=== PATIENT | female | born 1970 | race Caucasian/White ===

== ENCOUNTER 2023-06-05 11:01 | Observation (INO) ==
[2023-06-05 15:34] LABS: BASOPHILS # (AUTO) 0.1 X10^3/uL (0.0-0.1); BASOPHILS % (AUTO) 0.9 % (0.2-1.0); EOSINOPHILS # (AUTO) 0.3 x10^3/uL (0.0-0.2); EOSINOPHILS % (AUTO) 2.7 % (0.9-2.9); HEMATOCRIT 41.2 % (36.0-47.0); HEMOGLOBIN 14.1 g/dL (12.0-16.0); LYMPHOCYTES # (AUTO) 3.6 X10^3/uL (1.3-2.9); MEAN CORPUSCULAR HEMOGLOBIN 30.7 pg (27.0-34.0); MEAN CORPUSCULAR HGB CONC 34.3 g/dL (33.0-35.0); MEAN CORPUSCULAR VOLUME 89.6 fL (80.0-100.0); MEAN PLATELET VOLUME 8.8 fL (7.4-11.0); MONOCYTES # (AUTO) 0.9 x10^3/uL (0.3-0.8); MONOCYTES % (AUTO) 7.2 % (0.0-13.0); NEUTROPHILS # (AUTO) 6.9 x10^3/uL (2.2-4.8); NEUTROPHILS % (AUTO) 58.2 % (42.0-75.0); PLATELET COUNT 248 X10^3/uL (150.0-450.0); RED BLOOD COUNT 4.59 X10^6/uL (3.5-5.4); RED CELL DISTRIBUTION WIDTH 13.3 % (11.6-16.5); WHITE BLOOD COUNT 11.8 X10^3/uL (3.6-10.0)
[2023-06-05] MEDS ORDERED: ZITHROMAX INJ 500 MG VIAL IV ONE (15:36)
[2023-06-05 15:46] LABS: ALANINE AMINOTRANSFERASE 21 Units/L (12-78); ALBUMIN 3.2 g/dL (3.4-5.0); ALKALINE PHOSPHATASE 98 Units/L (46-116); ASPARTATE AMINO TRANSFERASE 12 Units/L (15-37); BLOOD UREA NITROGEN 21 mg/dL (7-18); CALCIUM 8.8 mg/dL (8.5-10.1); CARBON DIOXIDE 27.2 mmol/L (21-32); CHLORIDE 107 mmol/L (98-107); COR CA(FOR HYPOALB) 9.4 mg/dL (8.5-10.1); GLUCOSE 110 mg/dL (65-99); SODIUM 142 mmol/L (136-145); eGFR NON BLACK RACES > 60 (>60)
[2023-06-05] MEDS: ZITHROMAX INJ 500 MG VIAL 500 MG in NS 250 ML IV 250 ML IV SCH (15:46)
[2023-06-05] MEDS: SOLU-Medrol 125 MG VIAL IVP SCH (15:46)
[2023-06-05] MEDS: INVanz INJ 1 GRAM VIAL 1 G in NS 100 ML IV 100 ML IV SCH (15:47)
[2023-06-05] MEDS: DUONEB 0.5 MG/3 MG (3 mL) NEB SCH (16:18)
[2023-06-05 16:48] LABS: BILIRUBIN,URINE NEGATIVE (NEGATIVE); BLOOD/HEMOGLOBIN,URINE NEGATIVE (NEGATIVE); GLUCOSE, URINE NEGATIVE (NEGATIVE); KETONES,URINE NEGATIVE (NEGATIVE); LEUKOCYTE ESTERASE ,URINE NEGATIVE (NEGATIVE); NITRITES,URINE NEGATIVE (NEGATIVE); PROTEIN,URINE NEGATIVE (NEGATIVE); UROBILINOGEN,URINE NORMAL (NORMAL)
[2023-06-05 16:49] LABS: APPEARANCE,URINE CLEAR (CLEAR); COLOR,URINE YELLOW (YELLOW)
[2023-06-05] MEDS: NICOTINE PATCH TD SCH (17:52)
[2023-06-05 18:05] VITALS: BMI 33.7
[2023-06-05] MEDS: ZOFRAN INJ 4 MG VIAL IVP PRN (18:08)
[2023-06-05] MEDS: DUONEB 0.5 MG/3 MG (3 mL) NEB ONE (18:11)
[2023-06-05] MEDS: PROVENTIL NEB TX 0.083% 2.5MG/ 3ML ONE (18:11)
--- NOTE | 2023-06-05 18:16 | RAD ---
EXAM:CHEST, PA/LAT ADULTHISTORY:bronchitis;COMPARISON:None availableTECHNIQUE:PA and lateral projections, 2 imagesFINDINGS:Cardiac silhouette is normal in size and configuration.Pulmonary vascular sizes are normal.No effusion.No acute focal airspace disease.Thin band of atelectasis or scarring in the left lower lobe.No pneumothorax.No acute osseous abnormalityIMPRESSION:No imaging findings of acute cardiopulmonary disease.THIS IS AN ELECTRONICALLY VERIFIED FINAL REPORT06/05/2023 6:13 PM - Electronically signed by Tony Durham MD
[2023-06-05] MEDS: PULMICORT NEB TX 0.5 MG NEB SCH (20:23)
[2023-06-05] MEDS: CHECK PATCH XX SCH (21:20)
[2023-06-06 04:46] LABS: BASOPHILS # (AUTO) 0.1 X10^3/uL (0.0-0.1); BASOPHILS % (AUTO) 0.4 % (0.2-1.0); EOSINOPHILS % (AUTO) 0.1 % (0.9-2.9); HEMATOCRIT 41.5 % (36.0-47.0); HEMOGLOBIN 14.1 g/dL (12.0-16.0); LYMPHOCYTES # (AUTO) 0.6 X10^3/uL (1.3-2.9); MEAN CORPUSCULAR HEMOGLOBIN 30.4 pg (27.0-34.0); MEAN CORPUSCULAR VOLUME 89.3 fL (80.0-100.0); MEAN PLATELET VOLUME 8.8 fL (7.4-11.0); MONOCYTES # (AUTO) 0.3 x10^3/uL (0.3-0.8); MONOCYTES % (AUTO) 2.5 % (0.0-13.0); NEUTROPHILS # (AUTO) 10.7 x10^3/uL (2.2-4.8); PLATELET COUNT 262 X10^3/uL (150.0-450.0); RED BLOOD COUNT 4.64 X10^6/uL (3.5-5.4); RED CELL DISTRIBUTION WIDTH 13.5 % (11.6-16.5); WHITE BLOOD COUNT 11.6 X10^3/uL (3.6-10.0)
[2023-06-06 04:49] LABS: BLOOD UREA NITROGEN 17 mg/dL (7-18); CALCIUM 8.6 mg/dL (8.5-10.1); CARBON DIOXIDE 22.6 mmol/L (21-32); CHLORIDE 106 mmol/L (98-107); COR NA(FOR HYPERGLY) 145 mmol/L (136-145); CREATININE 1.03 mg/dL (0.55-1.02); GLUCOSE 293 mg/dL (65-99); POTASSIUM 4.1 mmol/L (3.5-5.1); SODIUM 140 mmol/L (136-145); eGFR NON BLACK RACES 59 (>60)
[2023-06-06 06:05] LABS: PLATELET MORPHOLOGY COMMENT NORMAL (NORMAL)
[2023-06-06] MEDS: TOPAMAX PO SCH (08:42)
[2023-06-06] MEDS: EFFEXOR XR 75 MG CAP 24-HR PO SCH (08:42)
[2023-06-06] MEDS: SINGULAIR TAB 10 MG PO SCH (08:42)
[2023-06-06] MEDS: COLACE CAP 100 MG PO PRN (08:42)
[2023-06-06] MEDS: MILK OF MAGNESIA PO PRN (08:42)
[2023-06-06] MEDS: FLONASE NASAL SPRAY ENOSTRIL PRN (08:42)
[2023-06-06] MEDS: PEPCID TAB 20 MG PO SCH (08:42)
[2023-06-06] MEDS: ZESTRIL TAB 10 MG PO SCH (08:42)
[2023-06-06] MEDS: SYNTHROID 75 mcg TAB PO SCH (08:42)
[2023-06-06] MEDS: LOVENOX INJ 40 MG SYR SC SCH (09:18)
--- NOTE | 2023-06-06 12:10 | DR.H&P ---
H&P History & Physical for Day of: H&P Date: 06/05/23 Chief Complaint Chief Complaint: COUGH, CONGESTION WITH SHORTNESS OF BREATH- FAILED OUTPATIENT TREATMENT Allergies Allergies Allergy/AdvReac Type Severity Reaction Status Date / Time ciprofloxacin [From Cipro] Allergy Severe ANAPHALEXIS Verified 06/05/23 15:02 REACTION iodine Allergy Severe ANAPHALEXIS Verified 06/05/23 15:02 REACTION shellfish derived Allergy Severe ANAPHALEXIS Verified 06/05/23 15:02 REACTION History of Present Illness History of Present Illness: 53 YEAR OLD WHITE FEMALE WHO IS A DIRECT ADMIT FROM DR. TAN OFFICE FOR TREATMENT OF ACUTE BRONCHITIS FAILED OUTPATIENT TREATMENT. PATIENT HAD TAKEN 2 ROUNDS OF PO ABX WITHOUT IMPROVEMENT. SHE HAS A PAST MEDICAL HISTORY OF HTN, OA, GERD. SHE IS A DAILY SMOKER. Past Medical History Past Medical History: Arthritis, GERD and Hypertension Additional Medical History: HISTORY OF DVT Past Surgical History Surgical History: Appendectomy, Ortho Surgery (BILATERAL TOTAL KNEE REPLACEMENTS, MULTIPLE LUMBAR SPINE SURGERIES), Thyroidectomy and Other (PARTIAL THYROIDECTOMY (RIGHT)) Family History Family Medical History: Diabetes Mellitus, Cancer, DC and Hypertension Social History Does patient currently use any type of tobacco product: Yes Have you used tobacco products in the last 12 months: Yes Type of Tobacco Use: Cigarettes How many years tobacco product used: 40 Alcohol Use: None Drug Use: None Medications Home Medications: Home Medications Medication Instructions Recorded Confirmed Type cefdinir 300 mg capsule 300 mg PO DAILY 06/05/23 06/05/23 History cyclobenzaprine 10 mg tablet 20 mg PO TID 06/05/23 06/05/23 History diclofenac sodium 75 mg 75 mg PO BID 06/05/23 06/05/23 History tablet,delayed release famotidine 20 mg tablet (Pepcid) 20 mg PO BID 06/05/23 06/05/23 History fluticasone fur. 100 mcg-umeclid 1 ea inhalation QDAY 06/05/23 06/05/23 History 62.5 mcg-vilant 25 mcg inhalat.powder (Trelegy Ellipta) fluticasone propionate 50 50 mcg intranasal PRN PRN 06/05/23 06/05/23 History mcg/actuation nasal spray,suspension (ClariSpray) hydromorphone (PF) 250 mg solution 0.4 mg continuous epidural Q24H 06/05/23 06/05/23 History for injection levothyroxine 75 mcg tablet 75 mcg PO DAILY 06/05/23 06/05/23 History (Synthroid) lisinopril 10 mg tablet (Zestril) 10 mg PO DAILY 06/05/23 06/05/23 History meclizine 25 mg tablet (Dramamine 25 mg PO PRN PRN dizziness 06/05/23 06/05/23 History (meclizine)) montelukast 10 mg tablet 10 mg PO QDAY 06/05/23 06/05/23 History (Singulair) pantoprazole 40 mg tablet,delayed 40 mg PO QDAY 06/05/23 06/05/23 History release (Protonix) tamsulosin 0.4 mg capsule (Flomax) 0.4 mg PO QDAY 06/05/23 06/05/23 History tizanidine 4 mg tablet (Zanaflex) 4 mg PO TID 06/05/23 06/05/23 History topiramate 50 mg tablet (Topamax) 50 mg PO BID 06/05/23 06/05/23 History tramadol 50 mg tablet 50 mg PO QID PRN Pain 06/05/23 06/05/23 History venlafaxine 75 mg capsule,extended 75 mg PO QDAY 06/05/23 06/05/23 History release 24 hr (Effexor XR) Labs 06/06/23 04:26 06/06/23 04:26 Labs: 06/05/23 15:35 Urine,Clean Catch Urine Culture - Preliminary Laboratory WBC 11.6 X10^3/uL (3.6-10.0) H 06/06/23 04: RBC 4.64 X10^6/uL (3.5-5.4) 06/06/23 04:26 Hgb 14.1 g/dL (12.0-16.0) 06/06/23 04:26 Hct 41.5 % (36.0-47.0) 06/06/23 04: MCV 89.3 fL (80.0-100.0) 06/06/23 04: MCH 30.4 pg (27.0-34.0) 06/06/23 04: MCHC 34.0 g/dL (33.0-35.0) 06/06/23 04:26 RDW 13.5 % (11.6-16.5) 06/06/23 04: Plt Count 262 X10^3/uL (150.0-450.0) 06/06/23 04:26 Plt Count Comment Adequate (ADEQUATE) 06/06/23 04: MPV 8.8 fL (7.4-11.0) 06/06/23 04: Neut % (Auto) 92.0 % (42.0-75.0) H 06/06/23 04:26 Lymph % (Auto) 5.0 % (21.0-51.0) L 06/06/23 04: [place] % (Auto) 2.5 % (0.0-13.0) 06/06/23 04: Eos % (Auto) 0.1 % (0.9-2.9) L 06/06/23 04: Baso % (Auto) 0.4 % (0.2-1.0) 06/06/23 04: Neut # (Auto) 10.7 x10^3/uL (2.2-4.8) H 06/06/23 04: Lymph # (Auto) 0.6 X10^3/uL (1.3-2.9) L 06/06/23 04:26 [place] # (Auto) 0.3 x10^3/uL (0.3-0.8) 06/06/23 04: Eos # (Auto) 0.0 x10^3/uL (0.0-0.2) 06/06/23 04: Baso # (Auto) 0.1 X10^3/uL (0.0-0.1) 06/06/23 04: Absolute Nucleated RBC 0.0 /100WBC 06/06/23 04: Total Counted 100 06/06/23 04:26 Neutrophils % (Manual) 88 % (39-76) H 06/06/23 04:26 Lymphocytes % (Manual) 7 % (13-43) L 06/06/23 04:26 Monocytes % (Manual) 5 % (4-9) 06/06/23 04:26 Atypical Lymphocytes Rare A 06/06/23 04:26 Plt Morphology Comment Normal (NORMAL) 06/06/23 04:26 RBC Morphology Normal (NORMAL) 06/06/23 04:26 Sodium 140 mmol/L (136-145) 06/06/23 04:26 Corrected Sodium 145 mmol/L (136-145) 06/06/23 04:26 Potassium 4.1 mmol/L (3.5-5.1) 06/06/23 04:26 Chloride 106 mmol/L (98-107) 06/06/23 04:26 Carbon Dioxide 22.6 mmol/L (21-32) 06/06/23 04:26 BUN 17 mg/dL (7-18) 06/06/23 04:26 Creatinine 1.03 mg/dL (0.55-1.02) H 06/06/23 04:26 Est GFR (MDRD) Af Amer > 60 (>60) 06/06/23 04:26 Est GFR (MDRD) Non-Af 59 (>60) 06/06/23 04:26 Glucose 293 mg/dL (65-99) H 06/06/23 04:26 Calcium 8.6 mg/dL (8.5-10.1) 06/06/23 04:26 Corrected Calcium 9.4 mg/dL (8.5-10.1) 06/05/23 15:00 Total Bilirubin 0.50 mg/dL (0.2-1.0) 06/05/23 15:00 AST 12 Units/L (15-37) L 06/05/23 15:00 ALT 21 Units/L (12-78) 06/05/23 15:00 Alkaline Phosphatase 98 Units/L (46-116) 06/05/23 15:00 Total Protein 7.0 g/dL (6.4-8.2) 06/05/23 15:00 Albumin 3.2 g/dL (3.4-5.0) L 06/05/23 15:00 Globulin 3.8 g/dL (2.5-4.5) 06/05/23 15:00 Albumin/Globulin Ratio 0.8 Ratio (1.1-2.1) L 06/05/23 15:00 Specimen Type Clean catch urine 06/05/23 15:35 Urine Color Yellow (YELLOW) 06/05/23 15:35 Urine Appearance Clear (CLEAR) 06/05/23 15:35 Urine pH 7.0 (5.0 - 8.0) 06/05/23 15:35 Ur Specific [place] 1.005 (1.000-1.030) 06/05/23 15:35 Urine Protein Negative (NEGATIVE) 06/05/23 15:35 Urine Glucose (UA) Negative (NEGATIVE) 06/05/23 15:35 Urine Ketones Negative (NEGATIVE) 06/05/23 15:35 Urine Blood Negative (NEGATIVE) 06/05/23 15:35 Urine Nitrite Negative (NEGATIVE) 06/05/23 15:35 Urine Bilirubin Negative (NEGATIVE) 06/05/23 15:35 Urine Urobilinogen Normal (NORMAL) 06/05/23 15:35 Ur Leukocyte Esterase Negative (NEGATIVE) 06/05/23 15:35 Review of Systems Constitutional: Weakness Eyes: No Symptoms Reported ENT: No Symptoms Reported Respiratory: Cough, Shortness of Breath and Sputum Cardiovascular: No Symptoms Reported Gastrointestinal: No Symptoms Reported Genitourinary: No Symptoms Reported Skin: No Symptoms Reported Neurological: Weakness Physical Exam Vital Signs: Vital Signs Temperature 97.6 F Temperature 98.2 F Pulse Rate [Right] 77 Pulse Rate [Right] 106 Pulse Rate 110 Respiratory Rate 20 Respiratory Rate 21 Blood Pressure [Right Arm] 130/67 Blood Pressure [Right Arm] 129/70 O2 Sat by Pulse Oximetry 90 O2 Sat by Pulse Oximetry 92 O2 Sat by Pulse Oximetry 94 O2 Sat by Pulse Oximetry 91 Oriented: Normal Eyes: Normal Ear: Normal Nose: Normal Throat: Dry Respiratory: Diminished Throughout Cardiovascular: Normal : Normal Auscultation: Bowel Sounds: Normal Palpation: Normal Tenderness: Normal Skin: Normal Musculoskeletal: Normal Psychiatric: Normal Mood Description: Calm Affect: Normal Speech Pattern: Clear Assessment/Plan (1) Acute bronchitis: Status: Acute Plan: ADMIT, OBTAIN AIT RESPIRATORY SWAB, BLOOD/SPUTUM/URINE CULTURES, CHEST XRAY. START IV ABX, SOLUMEDROL, NICOTINE PATCH, ZOFRAN PRN, RESPIRATORY THERAPY. (2) HTN (hypertension): Status: Acute (3) GERD (gastroesophageal reflux disease): Status: Acute (4) Lumbar degenerative disc disease: Status: Acute
--- NOTE | 2023-06-06 12:10 | PCM.PROG ---
Progress Note Progress Note for Day of Date of Exam: 06/06/23 Subjective Subjective: 53 YEAR OLD WHITE FEMALE PATIENT WHO WAS A DIRECT ADMIT FROM DR. TAN OFFICE YESTERDAY WITH ACUTE BRONCHITIS- FAILED OUTPATIENT TREATMENT. UPON ADMISSION, WE OBTAINED AN AIT RESPRIATORY SWAB, BLOOD/SPUTUM/URINE CULTURES, CHEST XRAY. WE STARTED THE PATIENT ON IV ABX, SOLUMEDROL, NICOTINE PATCH, ZOFRAN PRN AND RESPIRATORY THERAPY. CHEST XRAY SHOWED NO IMAGING FINDINGS OF ACUTE BRONCHITIS. URINE CULTURE BACK AND SHOWED NO GROWTH AT DAY 1. ADMISSION LABS SHOWED WBC 11.8. HGB 14.1, BUN 21/CREATININE 1.00. AM LABS: WBC 11.6, HGB 14.1, BUN 17/1.03, GLUCOSE 293. PATIENT DENIES HISTORY OF DIABETES MELLITUS. Past Medical Family Social History Allergies: Allergies ciprofloxacin [From Cipro] Allergy (Severe, Verified 06/05/23 15:02) ANAPHALEXIS REACTION iodine Allergy (Severe, Verified 06/05/23 15:02) ANAPHALEXIS REACTION shellfish derived Allergy (Severe, Verified 06/05/23 15:02) ANAPHALEXIS REACTION Vital Signs and I&O's Vital Signs: Vital Signs Temperature 97.6 F Temperature 98.2 F Pulse Rate [Right] 77 Pulse Rate [Right] 106 Pulse Rate 110 Respiratory Rate 20 Respiratory Rate 21 Blood Pressure [Right Arm] 130/67 Blood Pressure [Right Arm] 129/70 O2 Sat by Pulse Oximetry 90 O2 Sat by Pulse Oximetry 92 O2 Sat by Pulse Oximetry 94 O2 Sat by Pulse Oximetry 91 Intake and Output: Intake & Output 06/03/23 06/04/23 06/05/23 06/06/23 11:59 11:59 11:59 11:59 Intake Total 1164 / 1164 Balance 1164 / 1164 Physical Exam Oriented: Normal Eyes: Normal Ear: Normal Nose: Normal Throat: Dry Respiratory: Diminished Cardiovascular: Normal : Normal Auscultation: Bowel Sounds: Normal Tenderness: Normal Skin: Normal Musculoskeletal: Normal Psychiatric: Normal Mood Description: Calm Affect: Normal Speech Pattern: Clear Laboratory and Diagnostics 06/06/23 04:26 06/06/23 04:26 Labs: 06/05/23 15:35 Urine,Clean Catch Urine Culture - Preliminary Laboratory WBC 11.6 X10^3/uL (3.6-10.0) H 06/06/23 04: RBC 4.64 X10^6/uL (3.5-5.4) 06/06/23 04: Hgb 14.1 g/dL (12.0-16.0) 06/06/23 04: Hct 41.5 % (36.0-47.0) 06/06/23 04: MCV 89.3 fL (80.0-100.0) 06/06/23 04: MCH 30.4 pg (27.0-34.0) 06/06/23 04: MCHC 34.0 g/dL (33.0-35.0) 06/06/23 04: RDW 13.5 % (11.6-16.5) 06/06/23 04: Plt Count 262 X10^3/uL (150.0-450.0) 06/06/23 04: Plt Count Comment Adequate (ADEQUATE) 06/06/23 04: MPV 8.8 fL (7.4-11.0) 06/06/23 04: Neut % (Auto) 92.0 % (42.0-75.0) H 06/06/23 04: Lymph % (Auto) 5.0 % (21.0-51.0) L 06/06/23 04: [place] % (Auto) 2.5 % (0.0-13.0) 06/06/23 04: Eos % (Auto) 0.1 % (0.9-2.9) L 06/06/23 04: Baso % (Auto) 0.4 % (0.2-1.0) 06/06/23 04:26 Neut # (Auto) 10.7 x10^3/uL (2.2-4.8) H 06/06/23 04:26 Lymph # (Auto) 0.6 X10^3/uL (1.3-2.9) L 06/06/23 04:26 [place] # (Auto) 0.3 x10^3/uL (0.3-0.8) 06/06/23 04:26 Eos # (Auto) 0.0 x10^3/uL (0.0-0.2) 06/06/23 04:26 Baso # (Auto) 0.1 X10^3/uL (0.0-0.1) 06/06/23 04:26 Absolute Nucleated RBC 0.0 /100WBC 06/06/23 04:26 Total Counted 100 06/06/23 04:26 Neutrophils % (Manual) 88 % (39-76) H 06/06/23 04:26 Lymphocytes % (Manual) 7 % (13-43) L 06/06/23 04:26 Monocytes % (Manual) 5 % (4-9) 06/06/23 04:26 Atypical Lymphocytes Rare A 06/06/23 04:26 Plt Morphology Comment Normal (NORMAL) 06/06/23 04:26 RBC Morphology Normal (NORMAL) 06/06/23 04:26 Sodium 140 mmol/L (136-145) 06/06/23 04:26 Corrected Sodium 145 mmol/L (136-145) 06/06/23 04:26 Potassium 4.1 mmol/L (3.5-5.1) 06/06/23 04:26 Chloride 106 mmol/L (98-107) 06/06/23 04:26 Carbon Dioxide 22.6 mmol/L (21-32) 06/06/23 04:26 BUN 17 mg/dL (7-18) 06/06/23 04:26 Creatinine 1.03 mg/dL (0.55-1.02) H 06/06/23 04:26 Est GFR (MDRD) Af Amer > 60 (>60) 06/06/23 04:26 Est GFR (MDRD) Non-Af 59 (>60) 06/06/23 04:26 Glucose 293 mg/dL (65-99) H 06/06/23 04:26 Calcium 8.6 mg/dL (8.5-10.1) 06/06/23 04:26 Corrected Calcium 9.4 mg/dL (8.5-10.1) 06/05/23 15:00 Total Bilirubin 0.50 mg/dL (0.2-1.0) 06/05/23 15:00 AST 12 Units/L (15-37) L 06/05/23 15:00 ALT 21 Units/L (12-78) 06/05/23 15:00 Alkaline Phosphatase 98 Units/L (46-116) 06/05/23 15:00 Total Protein 7.0 g/dL (6.4-8.2) 06/05/23 15:00 Albumin 3.2 g/dL (3.4-5.0) L 06/05/23 15:00 Globulin 3.8 g/dL (2.5-4.5) 06/05/23 15:00 Albumin/Globulin Ratio 0.8 Ratio (1.1-2.1) L 06/05/23 15:00 Specimen Type Clean catch urine 06/05/23 15:35 Urine Color Yellow (YELLOW) 06/05/23 15:35 Urine Appearance Clear (CLEAR) 06/05/23 15:35 Urine pH 7.0 (5.0 - 8.0) 06/05/23 15:35 Ur Specific [place] 1.005 (1.000-1.030) 06/05/23 15:35 Urine Protein Negative (NEGATIVE) 06/05/23 15:35 Urine Glucose (UA) Negative (NEGATIVE) 06/05/23 15:35 Urine Ketones Negative (NEGATIVE) 06/05/23 15:35 Urine Blood Negative (NEGATIVE) 06/05/23 15:35 Urine Nitrite Negative (NEGATIVE) 06/05/23 15:35 Urine Bilirubin Negative (NEGATIVE) 06/05/23 15:35 Urine Urobilinogen Normal (NORMAL) 06/05/23 15:35 Ur Leukocyte Esterase Negative (NEGATIVE) 06/05/23 15:35 Plan (1) Acute bronchitis: Status: Acute Plan: RESUMED HOME MEDICATIONS, OBTAIN A1C. CONTINUE IV ABX, SOLUMEDROL, NICOTINE PATCH, ZOFRAN PRN, RESPIRATORY THERAPY. (2) HTN (hypertension): Status: Acute (3) GERD (gastroesophageal reflux disease): Status: Acute (4) Lumbar degenerative disc disease: Status: Acute
[2023-06-06] MEDS: NS 1,000 ML IV 1,000 ML IV SCH (14:51)
[2023-06-06 21:58] VITALS: RESP 20
[2023-06-07 05:30] LABS: BASOPHILS % (AUTO) 0.1 % (0.2-1.0); HEMATOCRIT 39.2 % (36.0-47.0); HEMOGLOBIN 13.5 g/dL (12.0-16.0); LYMPHOCYTES # (AUTO) 1.1 X10^3/uL (1.3-2.9); LYMPHOCYTES % (AUTO) 6.2 % (21.0-51.0); MEAN CORPUSCULAR HEMOGLOBIN 30.7 pg (27.0-34.0); MEAN CORPUSCULAR HGB CONC 34.5 g/dL (33.0-35.0); MEAN CORPUSCULAR VOLUME 88.9 fL (80.0-100.0); MEAN PLATELET VOLUME 8.9 fL (7.4-11.0); MONOCYTES # (AUTO) 0.9 x10^3/uL (0.3-0.8); NEUTROPHILS # (AUTO) 16.3 x10^3/uL (2.2-4.8); NEUTROPHILS % (AUTO) 88.7 % (42.0-75.0); PLATELET COUNT 267 X10^3/uL (150.0-450.0); RED BLOOD COUNT 4.41 X10^6/uL (3.5-5.4); RED CELL DISTRIBUTION WIDTH 13.5 % (11.6-16.5); WHITE BLOOD COUNT 18.4 X10^3/uL (3.6-10.0)
[2023-06-07 05:42] VITALS: TEMP 98; O2SAT 94
[2023-06-07 05:44] LABS: ALANINE AMINOTRANSFERASE 16 Units/L (12-78); ALBUMIN 2.8 g/dL (3.4-5.0); ALKALINE PHOSPHATASE 88 Units/L (46-116); ASPARTATE AMINO TRANSFERASE 10 Units/L (15-37); BLOOD UREA NITROGEN 18 mg/dL (7-18); CALCIUM 8.5 mg/dL (8.5-10.1); CARBON DIOXIDE 26.3 mmol/L (21-32); CHLORIDE 105 mmol/L (98-107); COR CA(FOR HYPOALB) 9.5 mg/dL (8.5-10.1); COR NA(FOR HYPERGLY) 143 mmol/L (136-145); CREATININE 0.84 mg/dL (0.55-1.02); GLUCOSE 164 mg/dL (65-99); POTASSIUM 4.4 mmol/L (3.5-5.1); SODIUM 141 mmol/L (136-145); TOTAL PROTEIN 6.4 g/dL (6.4-8.2); eGFR NON BLACK RACES > 60 (>60)
[2023-06-07 08:48] VITALS: BP 122/59
[2023-06-07 09:06] VITALS: PULSE 90
== END 2023-06-07 14:00 | disposition home or self-care (01) ==
LOC: MED/SURG
PROVIDERS: ADMIT Internal Medicine; ATTEND Internal Medicine
DX: R73.09 Other abnormal glucose; J20.8 Acute bronchitis due to other specified organisms; Z86.718 Personal history of other venous thrombosis and embolism; I10 Essential (primary) hypertension; K21.9 Gastro-esophageal reflux disease without esophagitis; R06.02 Shortness of breath; Z72.0 Tobacco use; Z66 Do not resuscitate; M51.36 Other intervertebral disc degeneration, lumbar region